=== PATIENT | male | born 1965 | race Caucasian/White ===

== ENCOUNTER 2025-04-16 07:24 | Emergency (ER) | payer SELFPAY ==
[2025-04-16] MEDS: fentaNYL 100 MCG/2 ML SDV IM ONE (08:44)
[2025-04-16] MEDS ORDERED: fentaNYL 100 MCG/2 ML SDV IM ONE (11:25)
[2025-04-16] MEDS: fentaNYL 100 MCG/2 ML SDV IVPUSH ONE (11:31)
== END 2025-04-16 11:52 | disposition home or self-care (01) ==
LOC: JD.ED 07:24
DX: S46.002A Unspecified injury of muscle(s) and tendon(s) of the rotator cuff of left shoulder, initial encounter (principal); I10 Essential (primary) hypertension; Z87.891 Personal history of nicotine dependence; W10.9XXA Fall (on) (from) unspecified stairs and steps, initial encounter
CPT/HCPCS: 73030; 96372; 96374; 99283; J3010